=== PATIENT | female | born 1955 | race Caucasian/White ===

== ENCOUNTER 2018-11-20 10:20 | Inpatient (IN) ==
--- NOTE | 2018-11-19 12:28 | Anesthesiology Consultation ---
Date of Service November 19, 2018 Assessment & Plan (1) Encounter for pre-operative examination: Chart Review Chart Review: Acceptable Risk for Surgery and Patient NOT seen in Pre Admission Testing History Surgery Operation Date: 11/20/18 08:45 Proposed Procedures p Left Proximal Humerus Open Reduction Internal Fixation - Hernan Sol DO Height/Weight Height: 5 ft Weight: 54.431 kg Allergies Allergy/AdvReac Type Severity Reaction Status Date / Time Penicillins Allergy Unknown A Verified 11/19/18 11:39 CHILD/UNSURE REACTION Medications Home Medications Medication Instructions Recorded Confirmed Last Taken benztropine 1 mg PO HS 11/19/18 11/19/18 Unknown lovastatin 40 mg PO HS 11/19/18 11/19/18 Unknown ziprasidone HCl 40 mg PO HS 11/19/18 11/19/18 Unknown Past Medical History Medical History Anxiety Depression Hyperlipidemia Manic disorder Past Family History Family History Father No problems noted. Mother Family history of diabetes mellitus Past Surgical History Surgical History History of tooth extraction Social History Smoking Status: Current every day smoker tobacco type: cigarettes Smoking cigarettes per day: 10 DAILY Do You Dip or Chew Tobacco: No Hx Alcohol Use: Yes Alcohol type: beer alcohol intake frequency: a few times a month Hx Substance Use: No substance use type: does not use Testing Electrocardiogram Date: 11/18/18 Findings: + NSR @ (93) Laboratory Results 11/18/18 WBC 8.32 H/H 16.3/46.7 PLATELETS 246 SODIUM 142 POTASSIUM 3.9 CHLORIDE 109 CO2 24 BUN 13 CREATININE 0.70 GLUCOSE 90
[~2018-11-20 10:20] MED LIST: CEFAZOLIN 2000MG 2,000 MG/15 ML SYR IV SCH; LR 15ML/HR IV SCH; LR 60ML/HR IV SCH
[2018-11-20] MEDS ORDERED: MIDAZOLAM HCL 1 MG/ML 2ML VIAL ONE ×2 (13:15→13:29)
[2018-11-20] MEDS ORDERED: fentaNYL citrate 100 MCG/2 ML VIAL ONE (13:15)
[2018-11-20] MEDS ORDERED: DEXAMETHASONE SOD INJ 4 MG/ML VIAL ONE (13:15)
[2018-11-20] MEDS ORDERED: LIDOCAINE HCL 2% 2 ML VIAL/AMP(20MG/ML) INFIL ONE (13:15)
[2018-11-20] MEDS ORDERED: NEOSTIGMINE METHYLSULFATE 5 MG/5 ML SYR ONE (13:15)
[2018-11-20] MEDS ORDERED: ONDANSETRON INJ 2 MG/ML 2 ML VIAL ONE (13:15)
[2018-11-20] MEDS ORDERED: PROPOFOL IV EMULSION 10 MG/ML 20 ML VIAL IV ONE (13:15)
[2018-11-20] MEDS ORDERED: GLYCOPYRROLATE 0.2 MG/ML VIAL ONE (13:15)
[2018-11-20] MEDS ORDERED: BUPIVACAINE 0.5 % 5 MG/1 ML PF 10ML VIAL ONE (13:43)
[2018-11-20] MEDS ORDERED: ATROPINE SULFATE 0.1 MG/ML 10ML SYR IV PRN (13:46)
[2018-11-20] MEDS ORDERED: HYDROmorphone INJ 1 MG/ML SYRINGE IV PRN (13:46)
[2018-11-20] MEDS ORDERED: ePHEDrine sulfate 50 MG/ML AMP IV PRN (13:46)
--- NOTE | 2018-11-20 14:01 | History & Physical Bridge Note ---
Date of Service November 20, 2018 History & Physical Bridge Note I have examined the patient, reviewed the History & Physical and in the interval since the performance of the History & Physical I have noted the following changes of clinical significance: no changes noted
--- NOTE | 2018-11-20 14:03 | History & Physical Report ---
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 Postoperatively she will be placed in a sling and kept overnight for postop medical management. We will hold off on therapy for 6 weeks after discharge. Present on Admission?: Yes History of Present Illness Primary Care Provider: Lawrence Remy is a pleasant 63-year-old female who fell and fractured her left proximal humerus 5 months ago. Unfortunately she went on to a nonunion. She came to my office with significant disability of her left shoulder. 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 After failing conservative treatment, she elected to proceed with open reduction internal fixation and bone grafting. Allergies Allergy/AdvReac Type Severity Reaction Status Date / Time Penicillins Allergy Unknown A Verified 11/20/18 10:55 CHILD/UNSURE REACTION Home Medications Home Medications Medication Instructions Recorded Confirmed Type benztropine 1 mg PO HS 11/19/18 11/20/18 History lovastatin 40 mg PO HS 11/19/18 11/20/18 History ziprasidone HCl 40 mg PO HS 11/19/18 11/20/18 History Past Med/Surg History Family History Father No problems noted. Mother Family history of diabetes mellitus Social History Preferred Language: [place] Island[place] Communication Ability: Effective Card Placer Required: No Beliefs That Will Affect Care: None Current Living Situation: Spouse Other Information That Helps Us Care for You: No Feels Safe at Home: Yes Safety Concerns: Feels Safe At This Time Smoking Status: Current every day smoker Hx Alcohol Use: Yes Hx Substance Use: No Review of Systems All systems reviewed & are unremarkable except as noted in HPI & below Physical Exam Vital Signs (Past 24 Hours): Last Vital Signs Temp 36.5 C 11/20/18 11:00 Pulse 82 11/20/18 11:00 Resp 18 11/20/18 11:00 BP 136/72 11/20/18 11:00 Pulse Ox 99 11/20/18 11:00 Musculoskeletal: On physical examination of the left shoulder, she is very limited range of motion with only about 30 degrees forward elevation and 30 degrees of abduction. Her radial median ulnar and axillary nerves were checked and intact. Results & Data Diagnostic Findings Radiographs of the left shoulder do show a fracture of the surgical neck of the left proximal humerus. It is in varus displacement. There is no signs of healing. MRI of the left shoulder showed an intact rotator cuff and a viable humeral head. I do not see any signs of avascular necrosis.
[2018-11-20] MEDS ORDERED: ROCURONIUM BROMIDE 10 MG/ML 5 ML VIAL ONE (15:03)
[2018-11-20] MEDS ORDERED: LARYING-O-JET KIT (LTA) ONE (15:03)
[2018-11-20] MEDS ORDERED: ePHEDrine sulfate 50 MG/ML SYR ONE (15:03)
[2018-11-20] MEDS ORDERED: PHENYLEPHRINE 100MCG/ML 5ML SYR ONE (15:03)
[2018-11-20] MEDS ORDERED: POVIDONE-IODINE OP SOLN 30 ML BTL ONE (16:06)
--- NOTE | 2018-11-20 16:33 | Operative Report ---
Post Operative Report Pre & Post Diagnosis Operation Date: 11/20/18 13:25 Pre-Op Diagnosis: Nonunion left Proximal Humerus Fracture Post-Op Diagnosis: Nonunion left Proximal Humerus Fracture Procedure Operation Date: 11/20/18 13:25 Actual Procedures p Left Proximal Humerus Open Reduction Internal Fixation with autologous bone grafting (Left) - Hernan Sol DO Surgeon Hernan Sol DO Plant Utilities Engineer Hernan Aguirre PAC Estimated Blood Loss 250 Findings Consistent with Post-Op Diagnosis Specimens None Complications none Disposition Disposition: Recovery Room Indications Sandrita is a pleasant 63-year-old female who fell 5 months ago sustaining a left proximal humerus fracture. She was treated conservatively at another institution. Unfortunately she went on to a nonunion. She was having a lot of pain and tightness in her left shoulder. After extensive discussions in the office, she elected to proceed with an open reduction and internal fixation of the left proximal humerus with bone grafting Description of Procedure On November 20, 2018 she arrived at [facility] for the above procedure. She was seen in the preoperative holding area and the operative extremity was identified and signed. She was given a preoperative antibiotic and a left interscalene nerve block. She was taken back to the operating room and laid on the table in supine position. She was put on general anesthesia. The left shoulder was then prepped and draped in sterile fashion. A timeout was done. The patient and the operative extremity was properly identified. A deltopectoral approach was used. Dissection was taken down through the fascia and the deltoid was retracted laterally in the conjoined tendon was retracted medially. The deltoid was very scarred into the fracture site. Significant time was spent trying to elevate the deltoid off the fracture. Care was taken not to disrupt the axillary nerve. The fracture was then identified and the edges of the fracture were identified in detail with a cautery. The fracture was then reduced under fluoroscopy. Tag sutures were placed in the supraspinatus and subscapularis to help control the rotation and version of the humeral head. The central canal of the humerus was opened up with a curette. The fracture was once again reduced. Anatomic reduction was checked under fluoroscopy. K wires were used to hold provisional fixation. A Synthes proximal humeral locking plate was then placed. A single compression screw was placed in the combination hole. Locking screws were placed proximally. I was happy with the overall alignment of the fracture and the plate. The remainder of the proximal locking screws and distal locking screws were then placed. Hemostasis was obtained. The axillary nerve was palpated and intact from the subscapularis into the lateral deltoid. The wound was then irrigated with a 3- minute Betadine lavage. The deltopectoral interval was closed with #1 Vicryl suture. Skin was closed with 3-0 Vicryl, 3-0V lock and talha. She was then placed in a soft dressing. She was given an arm sling. She was then extubated. She was transferred to a hospital bed. She was taken to the postanesthesia care unit in stable condition. She tolerated the procedure well. I attest to the content of the Intraoperative Record and any orders documented therein. Any exceptions are noted below.
--- NOTE | 2018-11-20 16:36 | Fluoroscopy Report ---
FL humerus LT 2V HISTORY: 63 years-old Female LEFT PROXIMAL HUMERUS ORIF ORIF of the left humerus COMPARISON: Left shoulder radiographs 11/03/2018 TECHNIQUE: 2 spot fluoroscopic images of the left humerus were obtained utilizing 73.6 seconds fluoro scopy time FINDINGS: Lateral plate and screw fusion hardware with fixation the previously noted proximal humeral fracture deformity. There may be minimal apex medial angulation with otherwise satisfactory alignment. Expecte d postsurgical soft tissue swelling and deep tissue air. No retained foreign bodies identified. IMPRESSION: Status post ORIF of the left proximal humerus with improved alignment. The above report was generated using voice recognition software. It may contain grammatical, syntax o r spelling errors. Electronically signed by: Rajendra Andujar M.D. 11/20/2018 4:35 PM
--- NOTE | 2018-11-20 17:37 | Anesthesiology Progress Note ---
Date of Service November 20, 2018 Anesthesia Post Procedure Vital Signs Vital Signs: Temp Pulse Pulse Resp BP Pulse Ox 11/20/18 17:30 36.2 C L 90 16 154/92 H 100 11/20/18 17:20 96 H 17 163/80 H 99 11/20/18 17:10 102 H 16 151/86 H 98 11/20/18 17:00 106 H 16 157/102 H 99 11/20/18 16:54 36.2 C L 104 H 12 159/103 H 99 11/20/18 11:00 36.5 C 82 18 136/72 99 Pain Intensity Left Shoulder: Pain Intensity: 5 Notes Mental Status: alert / awake / arousable and participated in evaluation Patient Amnestic to Procedure: Yes Nausea / Vomiting: adequately controlled Pain: adequately controlled Airway Patency, RR, SpO2: stable & adequate BP & HR: stable & adequate Hydration State: stable & adequate Anesthetic Complications: no major complications apparent and Pt Satisfied with anesthetic care
[2018-11-20] MEDS ORDERED: OXYCODONE HCL IR 5 MG TAB (IMMEDIATE RELEASE) PO PRN (18:16)
[2018-11-20] MEDS ORDERED: SODIUM CHLORIDE 0.9% 1000ML 1,000 ML IV SCH (18:16)
[2018-11-20] MEDS ORDERED: ONDANSETRON INJ 2 MG/ML 2 ML VIAL IV PRN (18:16)
[2018-11-20] MEDS ORDERED: HYDROmorphone INJ 0.5 MG/0.5 ML SYR IV PRN (18:16)
[2018-11-20] MEDS ORDERED: METOCLOPRAMIDE HCL INJ 5 MG/ML 2 ML VIAL IV PRN (18:16)
[2018-11-20] MEDS ORDERED: MAGNESIUM HYDROXIDE SUSP 30 ML UDC PO PRN (18:16)
[2018-11-20] MEDS ORDERED: NALOXONE HCL 0.4 MG/1 ML VIAL/CARP IV PRN (18:16)
[2018-11-20] MEDS ORDERED: BISACODYL 10 MG SUPP PR PRN (18:16)
[2018-11-20] MEDS: KETOROLAC TROMETHAMINE 15 MG/ML VIAL IV SCH (19:46)
[2018-11-20] MEDS ORDERED: LOVASTATIN 20 MG TAB PO SCH (21:00)
[2018-11-20] MEDS ORDERED: LOVASTATIN PO SCH (21:00)
[2018-11-20] MEDS ORDERED: ZIPRASIDONE PO SCH (21:00)
[2018-11-20] MEDS ORDERED: BENZTROPINE MESYLATE 1 MG TAB PO SCH (21:00)
[2018-11-20] MEDS ORDERED: ZIPRASIDONE HCL 20 MG CAP PO SCH (21:00)
[2018-11-20] MEDS: DOCUSATE SODIUM 100 MG CAP PO SCH ×2 (22:00→22:05)
[2018-11-20] MEDS: SENNA 8.6 MG TAB PO SCH ×2 (22:04→22:50)
[2018-11-20] MEDS: ACETAMINOPHEN 500 MG TAB PO SCH (22:06)
[2018-11-20] MEDS: CEFAZOLIN 1000MG 1,000 MG/7.5 ML SYR IV SCH (22:07)
[2018-11-21] MEDS: KETOROLAC TROMETHAMINE 15 MG/ML VIAL IV SCH ×2 (00:15→05:43)
[2018-11-21] MEDS: CEFAZOLIN 1000MG 1,000 MG/7.5 ML SYR IV SCH (05:35)
[2018-11-21] MEDS: ACETAMINOPHEN 500 MG TAB PO SCH (06:12)
--- NOTE | 2018-11-21 06:27 | Orthopedic Progress Note ---
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 She will be seen by therapy today to do hand, wrist, elbow, and pendulum exercises. She will ambulate some with physical therapy. As long she is doing well she can be discharged home. She will be in a sling for total of 6 weeks. I want her to do the range of motion exercises on her own at home. Present on Admission?: Yes Subjective Sandrita was seen and examined at bedside this morning. Overall she is doing fairly well. She is not having any pain in her left shoulder. She is been up and using the bathroom. She has no complaints. Physical Exam Vital Signs (Past 24 Hours): Last Vital Signs Temp 36.5 C 11/21/18 03:16 Pulse 91 H 11/21/18 03:16 Resp 14 11/21/18 03:16 BP 131/85 11/21/18 03:16 Pulse Ox 95 11/21/18 03:16 Musculoskeletal: On physical examination of the left shoulder, the dressing is clean and dry. She has no function of her hand and no feeling in her hand, that nerve block is still intact.
--- NOTE | 2018-11-21 06:28 | Discharge Summary ---
Date of Service November 21, 2018 Admission HPI Per Admitting Provider Sandrita is a pleasant 63-year-old female who fell and fractured her left proximal humerus 5 months ago. Unfortunately she went on to a nonunion. She came to my office with significant disability of her left shoulder. 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 After failing conservative treatment, she elected to proceed with open reduction internal fixation and bone grafting. 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 Postoperatively she was placed in a sling and discharged to [facility] orthopedic floors. She had a general anesthetic and a left interscalene nerve block. Her hospital course was uneventful. On postop day #1 her pain was well controlled. She was able to participate well with physical therapy doing range of motion exercises. She was then discharged home. She will be in a sling for 6 weeks. She supposed to follow-up with Dr. Sol in the office in 2 weeks. Discharge Instructions Home Medications Medication Instructions Recorded Confirmed benztropine 1 mg PO HS 11/19/18 11/20/18 lovastatin 40 mg PO HS 11/19/18 11/20/18 ziprasidone HCl 40 mg PO HS 11/19/18 11/20/18 Previous Rx's Medication Instructions Recorded oxycodone 5 - 10 mg PO Q4H PRN #40 tab 11/21/18
[2018-11-21] MEDS ORDERED: MULTIVITAMIN TAB PO SCH (09:00)
[2018-11-21] MEDS: DOCUSATE SODIUM 100 MG CAP PO SCH (09:04)
== END 2018-11-21 10:44 | disposition home or self-care (01) | DRG 494 ==
LOC: ASU 10:20 → 3E 16:36